=== PATIENT | female | born 1995 | race Hispanic/Latino ===

== ENCOUNTER 2017-05-30 11:08 | Emergency (ER) | payer MEDICAID ==
[2017-05-30 14:31] LABS: Basophils % (Auto) 0.4 % (0.0-1.8); Eosinophils # (Auto) 0.2 K/mm3 (0.0-0.4); Eosinophils % (Auto) 2.4 % (0.0-4.3); Hemoglobin 15.6 gm/dl (10.1-14.3); Lymphocytes # (Auto) 1.9 K/mm3 (1.2-5.4); Lymphocytes % (Auto) 27.8 % (13.4-35.0); Mean Corpuscular HGB Conc 35 % (30-34); Mean Corpuscular Hemoglobin 32 pg (28-32); Mean Corpuscular Volume 91 fl (79-97); Monocytes # (Auto) 0.5 K/mm3 (0.0-0.8); Monocytes % (Auto) 6.7 % (0.0-7.3); Platelet Count 252 K/mm3 (140-440); Red Blood Count 4.94 M/mm3 (3.65-5.03); Red Cell Distribution Width 12.5 % (13.2-15.2)
--- NOTE | 2017-05-30 14:57 | Emergency Department Report ---
ED Chest Pain HPI - General Chief Complaint: Shoulder Injury Stated Complaint: CHEST PAIN Time Seen by Provider: 05/30/17 13:17 Source: patient Mode of arrival: Ambulatory Limitations: No Limitations - History of Present Illness Initial Comments: 21-year-old female past medical history heart murmur, congenital ventricular septal defect, smoker presents with complaint of 1 week of intermittent left- sided chest discomfort. Patient awake alert and oriented 3 not in acute distress fully lucid and conversant. No visible respiratory distress no audible wheezing or stridor. Patient denies any associated fever chills shortness of breath pleuritic chest pain. Recently on oral contraceptives. Family no hx of [place] mother, father [place] age 50. No personal history of PE or DVT. Patient denies any lower extremity swelling or calf tenderness. Denies any abdominal pain. States that episodes of chest discomfort have been coming intermittently on a daily basis lasting for a few minutes at a time radiating from left breast left shoulder. Patient is accompanied by family members at bedside. Patient states that she went to [facility] earlier this week had testing including a CT with contrast of her chest to rule out pulmonary embolism which was negative. Patient has documentation she is presenting to me and discharge paperwork from [facility] indicating this. Patient states she has had persistent chest wall discomfort and wants a second opinion. Patient also states that she has followed with a cardiology group for this chest pain and a heart murmur in the past. Last saw him approximately one year ago. States she has follow-up at the end of May for evaluation. Complaint: chest pain Onset/Timin -: week(s) - Related Data Previous Rx's Medication Instructions Recorded Last Taken Type Acetaminophen [Acetaminophen TAB] 500 mg PO Q6HR PRN #30 tablet 05/30/17 Unknown Rx Allergies Allergy/AdvReac Type Severity Reaction Status Date / Time No Known Allergies Allergy Unverified 05/30/17 16:31 Heart Score - HEART Score History: Slightly suspicious EKG: Normal Age: < 45 Risk factors: 1-2 risk factors Troponin: < normal limit HEART Score: 1 ED Review of Systems ROS: Stated complaint: CHEST PAIN Other details as noted in HPI Constitutional: denies: chills, fever Eyes: denies: eye pain, eye discharge, vision change ENT: denies: ear pain, throat pain Respiratory: denies: cough, shortness of breath, wheezing Cardiovascular: chest pain, palpitations Endocrine: no symptoms reported Gastrointestinal: denies: abdominal pain, nausea, diarrhea Genitourinary: denies: urgency, dysuria, discharge Musculoskeletal: denies: back pain, joint swelling, arthralgia Skin: denies: rash, lesions Neurological: denies: headache, weakness, paresthesias Psychiatric: denies: anxiety, depression Hematological/Lymphatic: denies: easy bleeding, easy bruising ED Past Medical Hx - Past Medical History Previous Medical History?: Yes Additional medical history: Heart Murmur - Surgical History Past Surgical History?: No - Social History Smoking Status: Never Smoker Substance Use Type: None - Medications Home Medications: Home Medications Medication Instructions Recorded Confirmed Last Taken Type Acetaminophen [Acetaminophen TAB] 500 mg PO Q6HR PRN #30 tablet 05/30/17 Unknown Rx ED Physical Exam - General Limitations: No Limitations General appearance: alert, in no apparent distress - Head Head exam: Present: atraumatic, normocephalic - Eye Eye exam: Present: normal appearance, PERRL, EOMI - ENT ENT exam: Present: mucous membranes moist - Neck Neck exam: Present: normal inspection - Respiratory Respiratory exam: Present: normal lung sounds bilaterally. Absent: respiratory distress - Cardiovascular Cardiovascular Exam: Present: regular rate, normal rhythm. Absent: systolic murmur, diastolic murmur, rubs, gallop - GI/Abdominal GI/Abdominal exam: Present: soft, normal bowel sounds - Extremities Exam Extremities exam: Present: normal inspection - Back Exam Back exam: Present: normal inspection - Neurological Exam Neurological exam: Present: alert, oriented X3 - Psychiatric Psychiatric exam: Present: normal affect, normal mood - Skin Skin exam: Present: warm, dry, intact, normal color. Absent: rash ED Course Vital Signs 05/30/17 11:12 Temperature 99.1 F Pulse Rate 67 Respiratory 18 Rate Blood Pressure 138/75 O2 Sat by Pulse 99 Oximetry MAXINE score - Maxine Score Age > 65: (0) No Aspirin use within the Past 7 Days: (0) No 3 or more CAD Risk Factors: (0) No 2 or more Angina events in past 24 hrs: (0) No Known CAD with more than 50% Stenosis: (0) No Elevated Cardiac Markers: (0) No ST Deviation Greater than 0.5mm: (0) No MAXINE Score: 0 ED Medical Decision Making - Lab Data Result diagrams: 05/30/17 14:14 05/30/17 14:14 - Medical Decision Making A/P: Chest pain, PVCs 1-discussed with Dr. Turcios before discharge 2-Low HEART Score 1 points Low Score (0-3 points) Risk of MACE of 0.9-1.7%. Patient states that she has follow-up with outpatient cardiology within next 2 weeks 3-Tylenol when necessary for chest discomfort. I advised the patient to avoid using NSAIDs as they do slightly increase at adverse cardiac events. 4- chest x-ray unremarkable, d-dimer negative, troponin negative 1(symptoms have been ongoing for over one week) 5- Critical care attestation.: If time is entered above; I have spent that time in minutes in the direct care of this critically ill patient, excluding procedure time. ED Disposition Clinical Impression: Chest pain Qualifiers: Chest pain type: other chest pain Qualified Code(s): R07.89 - Other chest pain ; R07.8 - Other chest pain Disposition: - TO HOME OR SELFCARE Is pt being admited?: No Does the pt Need Aspirin: No Condition: Stable Instructions: Chest Pain (ED) Prescriptions: Acetaminophen [Acetaminophen TAB] 500 mg PO Q6HR PRN #30 tablet PRN Reason: Pain Referrals: JACQUIE REYNOSO MD [Primary Care Provider] - 3-5 Days GREER JOHNSON MD [Staff Physician] - 3-5 Days [facility] [Provider Group] - 3-5 Days Forms: Accompanied Note Time of Disposition: 17:14
[2017-05-30 15:00] LABS: BUN/Creatinine Ratio 12; Blood Urea Nitrogen 7 mg/dL (7-17); Calcium 10.1 mg/dL (8.4-10.2); Hemolysis Index 3
--- NOTE | 2017-05-30 15:16 | XRay Report ---
ROUTINE CHEST, TWO VIEWS: HISTORY: chest pain. The trachea, heart, mediastinal contour, lung baumann and bony thorax are unremarkable. IMPRESSION: Unremarkable chest x-ray.
[2017-05-30 17:23] VITALS: BP 120/69
== END 2017-05-30 17:58 | disposition home or self-care (01) ==
LOC: ED 11:08
DX: R07.89 Other chest pain (principal); F17.200 Nicotine dependence, unspecified, uncomplicated
CPT/HCPCS: 36415; 71046; 80048; 82550; 84484; 84703; 85025; 85379; 93005; 93010; 99284